=== PATIENT | male | born 1950 | race Caucasian/White ===

== ENCOUNTER → 2018-03-24 08:39 | Outpatient (CLI) | payer MEDICARE, SELFPAY ==
[2018-03-24 10:06] LABS: Absolute Lymphocyte Count 2.21 X10^3/ul (0.83-4.51); Absolute Neutrophil Count 3.1 X10^3/uL (2.0-7.7); Basophil# 0.01 X10^3/uL; Basophil% 0.2 % (0-1); Eosinophil# 0.16 X10^3/uL; Eosinophils% 2.7 % (0-5); Hemoglobin 15.5 g/dl (13.0-16.5); Lymphocyte # 2.21 X10^3/ul (4.0); Lymphocyte % 37.4 % (19-41); Mean Corpuscular Hgb 29.6 pg (27.0-32.0); Mean Corpuscular Volume 89.7 fL (80-94); Monocyte# 0.43 X10^3/uL; Monocyte% 7.3 % (0-10); Neutrophil # 3.09 X10^3/uL (2.7-7.7); Neutrophil % 52.2 % (47-70); Platelet Count 214 K/mm3 (150-450); RBC Distribution Width CV 12.8 % (11.6-14.6); RBC Distribution Width SD 41.8 fl (35.1-43.9); Red Blood Count 5.24 M/mm3 (4.6-6.2); White Blood Count 5.9 K/mm3 (4.4-11.0)
[2018-03-24 10:19] LABS: POSITIVE COUNT NO; POSITIVE DIFFERENTIAL NO; POSITIVE MORPHOLOGY NO
[2018-03-24 10:20] LABS: AST(SGOT) 10 U/L (15-37); Alanine Aminotransfer ALT/SGPT 20 U/L (16-61); Albumin, Serum 3.7 g/dL (3.2-5.0); Alkaline Phosphatase 38 U/L (45-117); Anion Gap 8 (5-15); BUN 16 mg/dL (7-18); BUN/Creat Ratio 19.3 RATIO (10-20); Calcium,Total 8.7 mg/dL (8.5-10.1); Chloride 105 mmol/L (98-107); Cholesterol 117 mg/dL (200); Creatinine, Serum 0.83 mg/dL (0.70-1.30); EST Glomerular Filtration Rate 98 mL/min (>60); Est Glom Filt Rate - Afr Amer 119 mL/min (>60); Globulin 3.7 g/dL (2.2-4.2); Glucose 141 mg/dL (74-106); High Density Lipoprotein 38 mg/dL; Potassium 4.4 mmol/L (3.5-5.1); Protein, Total 7.4 g/dL (6.4-8.2); Sodium Level 138 mmol/L (136-145); Triglycerides 123 mg/dL; Very Low Density Lipoprotein 25 mg/dL (5-40)
== END ==
PROVIDERS: Family Provider Family Medicine; PCP Family Medicine; Visit Provider Family Medicine
DX: M17.0 Bilateral primary osteoarthritis of knee (principal); E11.65 Type 2 diabetes mellitus with hyperglycemia
CPT/HCPCS: 36415; 80053; 80061; 85025

== ENCOUNTER → 2019-01-21 | Outpatient (CLI) | payer MEDICARE, SELFPAY ==
[2019-01-21 10:12] LABS: Microalbumin,Random Urine 19.6 mg/L (NO RANGE EST.); Microalbumin:Creatinine Ratio 31.1 mg/g CRE (<30 mg/g CRE)
[2019-01-21 10:29] LABS: ALB/GLOB Ratio 1.1 RATIO (0.9-2.4); AST(SGOT) 12 U/L (15-37); Alanine Aminotransfer ALT/SGPT 21 U/L (16-61); Albumin, Serum 3.7 g/dL (3.2-5.0); Alkaline Phosphatase 40 U/L (45-117); Anion Gap 5 (5-15); BUN 14 mg/dL (7-18); BUN/Creat Ratio 17.6 RATIO (10-20); Calcium,Total 8.9 mg/dL (8.5-10.1); Chloride 105 mmol/L (98-107); Cholesterol 124 mg/dL (200); EST Glomerular Filtration Rate 103 mL/min (>60); Est Glom Filt Rate - Afr Amer 125 mL/min (>60); Globulin 3.4 g/dL (2.2-4.2); Glucose 146 mg/dL (74-106); High Density Lipoprotein 36 mg/dL; Potassium 4.3 mmol/L (3.5-5.1); Protein, Total 7.1 g/dL (6.4-8.2); Sodium Level 136 mmol/L (136-145); Triglycerides 202 mg/dL; Very Low Density Lipoprotein 40 mg/dL (5-40)
== END | disposition home or self-care (01) ==
PROVIDERS: Family Provider Family Medicine; PCP Family Medicine; Referring Provider Family Medicine; Visit Provider Family Medicine
DX: E11.9 Type 2 diabetes mellitus without complications (principal)
CPT/HCPCS: 36415; 80053; 80061; 82043; 82570

== ENCOUNTER → 2020-11-30 16:55 | Outpatient (CLI) | payer MEDICARE, SELFPAY ==
[2015-10-02 13:18] VITALS: BMI 37.4
[2020-11-30 17:58] LABS: PSA,Total - Annual Screen 0.89 ng/mL (0.00-4.00)
== END ==
PROVIDERS: PCP Family Medicine; Referring Provider Family Medicine; Visit Provider Nurse Practitioner Family
DX: Z12.5 Encounter for screening for malignant neoplasm of prostate (principal)
CPT/HCPCS: 36415; 84153; G0103

== ENCOUNTER → 2021-12-10 | Outpatient (CLI) | payer MEDICARE, SELFPAY ==
[2021-12-10 10:39] LABS: ALB/GLOB Ratio 1.1 RATIO (0.9-2.4); AST(SGOT) 9 U/L (15-37); Alanine Aminotransfer ALT/SGPT 18 U/L (16-61); Albumin, Serum 3.9 g/dL (3.2-5.0); Alkaline Phosphatase 40 U/L (45-117); Anion Gap 7 (5-15); BUN 20 mg/dL (7-18); Calcium,Total 10.1 mg/dL (8.5-10.1); Chloride 102 mmol/L (98-107); Creatinine, Serum 0.95 mg/dL (0.70-1.30); EST Glomerular Filtration Rate 83 mL/min (>60); Est Glom Filt Rate - Afr Amer 101 mL/min (>60); Globulin 3.7 g/dL (2.2-4.2); Glucose 162 mg/dL (74-106); Potassium 4.6 mmol/L (3.5-5.1); Protein, Total 7.6 g/dL (6.4-8.2); Sodium Level 135 mmol/L (136-145)
[2021-12-10 10:41] LABS: Microalbumin:Creatinine Ratio 233.2 mg/g CRE (<30 mg/g CRE)
== END | disposition home or self-care (01) ==
LOC: MFPLAB 08:22
PROVIDERS: PCP Family Medicine; Visit Provider Family Medicine
DX: E11.8 Type 2 diabetes mellitus with unspecified complications (principal)
CPT/HCPCS: 36415; 80053; 82043; 82570

== ENCOUNTER → 2022-05-01 | Outpatient (CLI) | payer MEDICARE, SELFPAY ==
[2022-05-01 10:05] LABS: Absolute Lymphocyte Count 1.94 X10^3/uL (0.83-4.51); Absolute Neutrophil Count 3.9 X10^3/uL (2.0-7.7); Basophil# 0.05 X10^3/uL; Basophil% 0.8 % (0-1); Eosinophil# 0.14 X10^3/uL; Eosinophils% 2.1 % (0-5); Hematocrit 43.3 % (40-54); Hemoglobin 13.4 g/dL (13.0-16.5); Lymphocyte # 1.94 X10^3/ul (0.83-4.51); Lymphocyte % 29.3 % (19-41); Mean Corp Hgb Conc 30.9 g/dL (32-36); Mean Corpuscular Hgb 28.6 pg (27.0-32.0); Mean Corpuscular Volume 92.5 fL (80-94); Mean Platelet Vol. 9.1 fl (6.2-12.0); Monocyte# 0.59 X10^3/uL; Monocyte% 8.9 % (0-10); NRBC Flagged by Analyzer 0 % (0-5); Neutrophil # 3.89 X10^3/uL (2.7-7.7); Neutrophil % 58.6 % (47-70); Platelet Count 291 K/mm3 (150-450); RBC Distribution Width CV 13.4 % (11.6-14.6); RBC Distribution Width SD 45.9 fl (35.1-43.9); Red Blood Count 4.68 M/mm3 (4.6-6.2); White Blood Count 6.6 K/mm3 (4.4-11.0)
[2022-05-01 10:40] LABS: AST(SGOT) 6 U/L (15-37); Alanine Aminotransfer ALT/SGPT 15 U/L (16-61); Albumin, Serum 3.7 g/dL (3.2-5.0); Alkaline Phosphatase 42 U/L (45-117); Anion Gap 8 (5-15); BUN 18 mg/dL (7-18); BUN/Creat Ratio 21.6 RATIO (10-20); Calcium,Total 9.5 mg/dL (8.5-10.1); Chloride 104 mmol/L (98-107); Cholesterol 121 mg/dL (200); Creatinine, Serum 0.84 mg/dL (0.70-1.30); EST Glomerular Filtration Rate 97 mL/min (>60); Est Glom Filt Rate - Afr Amer 117 mL/min (>60); Globulin 3.6 g/dL (2.2-4.2); Glucose 161 mg/dL (74-106); High Density Lipoprotein 51 mg/dL; Potassium 4.3 mmol/L (3.5-5.1); Protein, Total 7.3 g/dL (6.4-8.2); Sodium Level 137 mmol/L (136-145); Triglycerides 130 mg/dL; Very Low Density Lipoprotein 26 mg/dL (5-40)
[2022-05-01 10:43] LABS: Microalbumin:Creatinine Ratio 223.6 mg/g CRE (<30 mg/g CRE)
== END | disposition home or self-care (01) ==
LOC: MFPLAB 08:07
PROVIDERS: PCP Family Medicine; Referring Provider Family Medicine; Visit Provider Family Medicine
DX: E66.01 Morbid (severe) obesity due to excess calories (principal); E11.8 Type 2 diabetes mellitus with unspecified complications
CPT/HCPCS: 36415; 80053; 80061; 82043; 82570; 85025

== ENCOUNTER → 2022-08-02 | Outpatient (CLI) | payer MEDICARE, SELFPAY ==
[2022-08-02 09:56] LABS: Absolute Lymphocyte Count 1.85 X10^3/uL (0.83-4.51); Absolute Neutrophil Count 4.2 X10^3/uL (2.0-7.7); Basophil# 0.03 X10^3/uL; Basophil% 0.4 % (0-1); Eosinophil# 0.21 X10^3/uL; Eosinophils% 3.1 % (0-5); Hematocrit 40.8 % (40-54); Hemoglobin 12.7 g/dL (13.0-16.5); Lymphocyte # 1.85 X10^3/ul (0.83-4.51); Lymphocyte % 27.4 % (19-41); Mean Corp Hgb Conc 31.1 g/dL (32-36); Mean Corpuscular Hgb 27.9 pg (27.0-32.0); Mean Corpuscular Volume 89.7 fL (80-94); Mean Platelet Vol. 8.9 fl (6.2-12.0); Monocyte# 0.46 X10^3/uL; Monocyte% 6.8 % (0-10); NRBC Flagged by Analyzer 0 % (0-5); Neutrophil # 4.18 X10^3/uL (2.7-7.7); Platelet Count 308 K/mm3 (150-450); RBC Distribution Width CV 13.4 % (11.6-14.6); RBC Distribution Width SD 44.3 fl (35.1-43.9); Red Blood Count 4.55 M/mm3 (4.6-6.2); White Blood Count 6.8 K/mm3 (4.4-11.0)
[2022-08-02 10:17] LABS: AST(SGOT) 9 U/L (15-37); Alanine Aminotransfer ALT/SGPT 13 U/L (16-61); Albumin, Serum 3.5 g/dL (3.2-5.0); Alkaline Phosphatase 45 U/L (45-117); Anion Gap 9 (5-15); BUN 21 mg/dL (7-18); BUN/Creat Ratio 22.8 RATIO (10-20); Calcium,Total 9.7 mg/dL (8.5-10.1); Chloride 104 mmol/L (98-107); Cholesterol 126 mg/dL (200); Creatinine, Serum 0.92 mg/dL (0.70-1.30); EST Glomerular Filtration Rate 86 mL/min (>60); Est Glom Filt Rate - Afr Amer 104 mL/min (>60); Globulin 3.4 g/dL (2.2-4.2); Glucose 159 mg/dL (74-106); High Density Lipoprotein 46 mg/dL; Potassium 4.9 mmol/L (3.5-5.1); Protein, Total 6.9 g/dL (6.4-8.2); Sodium Level 140 mmol/L (136-145); Triglycerides 152 mg/dL; Very Low Density Lipoprotein 30 mg/dL (5-40)
[2022-08-02 10:20] LABS: Microalbumin:Creatinine Ratio 252.8 mg/g CRE (<30 mg/g CRE)
== END | disposition home or self-care (01) ==
LOC: MFPLAB 08:37
PROVIDERS: PCP Family Medicine; Referring Provider Family Medicine; Visit Provider Family Medicine
DX: E11.9 Type 2 diabetes mellitus without complications (principal); I10 Essential (primary) hypertension
CPT/HCPCS: 36415; 80053; 80061; 82043; 82570; 85025

== ENCOUNTER → 2022-11-01 | Outpatient (CLI) | payer MEDICARE, SELFPAY ==
[2022-11-01 10:05] LABS: Microalbumin:Creatinine Ratio 138.7 mg/g CRE (<30 mg/g CRE)
[2022-11-01 10:18] LABS: AST(SGOT) 7 U/L (15-37); Alanine Aminotransfer ALT/SGPT 15 U/L (16-61); Albumin, Serum 3.7 g/dL (3.2-5.0); Alkaline Phosphatase 50 U/L (45-117); Anion Gap 4 (5-15); BUN 21 mg/dL (7-18); BUN/Creat Ratio 19.8 RATIO (10-20); Calcium,Total 9.8 mg/dL (8.5-10.1); Chloride 103 mmol/L (98-107); Creatinine, Serum 1.06 mg/dL (0.70-1.30); EST Glomerular Filtration Rate 73 mL/min (>60); Est Glom Filt Rate - Afr Amer 89 mL/min (>60); Globulin 3.8 g/dL (2.2-4.2); Glucose 190 mg/dL (74-106); Potassium 4.7 mmol/L (3.5-5.1); Protein, Total 7.5 g/dL (6.4-8.2); Sodium Level 135 mmol/L (136-145)
== END | disposition home or self-care (01) ==
LOC: MTLAB 08:36
PROVIDERS: PCP Family Medicine; Referring Provider Family Medicine; Visit Provider Family Medicine
DX: E11.8 Type 2 diabetes mellitus with unspecified complications (principal)
CPT/HCPCS: 36415; 80053; 82043; 82570

== ENCOUNTER → 2022-11-25 | Outpatient (CLI) | payer MEDICARE, SELFPAY ==
--- NOTE | 2022-11-25 09:40 | RAD_ITS ---
STUDY: X-RAY - LUMBAR SPINE REASON FOR EXAM: Male, 72 years old. Lumbar sprain. Pain. TECHNIQUE: 5 view(s) of the lumbar spine were obtained. COMPARISON: None FINDINGS: Osteopenia. Normal lumbar lordosis. Rotatory levoscoliosis. There is a normal alignment of the vertebrae. Diffuse lower thoracic and lumbosacral facet sclerosis. Intervertebral disc space narrowing with osteophytes in the lower thoracic spine and from L1 to L5 S1. Osteophyte formation most marked at L3-4, L4-5 and L5-S1. Vascular calcification. RAD/L/S Spine Min 4 Views IMPRESSION: Levoscoliosis with lower thoracic and lumbosacral spondylosis as described. Electronically Signed: Lc Ruano, at 13:51 EDT ,
== END | disposition home or self-care (01) ==
PROVIDERS: PCP Family Medicine; Referring Provider Chiropractor; Visit Provider Chiropractor
DX: S33.5XXA Sprain of ligaments of lumbar spine, initial encounter (principal)
CPT/HCPCS: 72110

== ENCOUNTER → 2023-08-22 | Outpatient (CLI) | payer MEDICARE, SELFPAY ==
[2023-08-22 12:18] LABS: Absolute Neutrophil Count 4.5 X10^3/uL (2.0-7.7); Basophil# 0.07 X10^3/uL; Basophil% 0.9 % (0-1); Eosinophil# 0.27 X10^3/uL; Eosinophils% 3.6 % (0-5); Hematocrit 39.5 % (40-54); Hemoglobin 11.8 g/dL (13.0-16.5); Lymphocyte % 27.9 % (19-41); Mean Corp Hgb Conc 29.9 g/dL (32-36); Mean Corpuscular Hgb 25.9 pg (27.0-32.0); Mean Corpuscular Volume 86.8 fL (80-94); Monocyte# 0.57 X10^3/uL; Monocyte% 7.6 % (0-10); NRBC Flagged by Analyzer 0 % (0-5); Neutrophil % 59.7 % (47-70); Platelet Count 296 K/mm3 (150-450); RBC Distribution Width CV 17.2 % (11.6-14.6); RBC Distribution Width SD 54.8 fl (35.1-43.9); Red Blood Count 4.55 M/mm3 (4.6-6.2); White Blood Count 7.5 K/mm3 (4.4-11.0)
[2023-08-22 12:54] LABS: AST(SGOT) 6 U/L (15-37); Alanine Aminotransfer ALT/SGPT 14 U/L (16-61); Albumin, Serum 3.7 g/dL (3.2-5.0); Alkaline Phosphatase 50 U/L (45-117); Anion Gap 4 (5-15); BUN 26 mg/dL (7-18); BUN/Creat Ratio 20.5 RATIO (10-20); Calcium,Total 9.7 mg/dL (8.5-10.1); Chloride 105 mmol/L (98-107); Cholesterol 135 mg/dL (200); Creatinine, Serum 1.27 mg/dL (0.70-1.30); EST Glomerular Filtration Rate 59 mL/min (>60); Est Glom Filt Rate - Afr Amer 72 mL/min (>60); Globulin 3.7 g/dL (2.2-4.2); Glucose 122 mg/dL (74-106); High Density Lipoprotein 58 mg/dL; PSA,Total - Annual Screen 1.41 ng/mL (0.00-4.00); Potassium 4.7 mmol/L (3.5-5.1); Protein, Total 7.4 g/dL (6.4-8.2); Sodium Level 137 mmol/L (136-145); Triglycerides 156 mg/dL; Very Low Density Lipoprotein 31 mg/dL (5-40)
[2023-08-22 13:09] LABS: Microalbumin,Random Urine 35.5 mg/L (NO RANGE EST.); Microalbumin:Creatinine Ratio 55.2 mg/g CRE (<30 mg/g CRE)
== END | disposition home or self-care (01) ==
LOC: MTLAB 10:23
PROVIDERS: PCP Family Medicine; Referring Provider Family Medicine; Visit Provider Family Medicine
DX: M17.0 Bilateral primary osteoarthritis of knee (principal); E11.9 Type 2 diabetes mellitus without complications; I10 Essential (primary) hypertension; Z12.5 Encounter for screening for malignant neoplasm of prostate
CPT/HCPCS: 36415; 80053; 80061; 82043; 82570; 84153; 85025; G0103

== ENCOUNTER → 2024-03-30 | Outpatient (CLI) | payer MEDICARE, SELFPAY ==
[2024-03-30 09:57] LABS: Absolute Lymphocyte Count 1.81 X10^3/uL (0.83-4.51); Absolute Neutrophil Count 4.5 X10^3/uL (2.0-7.7); Basophil# 0.07 X10^3/uL; Eosinophil# 0.45 X10^3/uL; Eosinophils% 6.2 % (0-5); Hematocrit 39.3 % (40-54); Hemoglobin 11.8 g/dL (13.0-16.5); Lymphocyte # 1.81 X10^3/ul (0.83-4.51); Lymphocyte % 24.8 % (19-41); Mean Corpuscular Hgb 26.3 pg (27.0-32.0); Mean Corpuscular Volume 87.7 fL (80-94); Mean Platelet Vol. 8.7 fl (6.2-12.0); Monocyte# 0.48 X10^3/uL; Monocyte% 6.6 % (0-10); NRBC Flagged by Analyzer 0 % (0-5); Neutrophil # 4.47 X10^3/uL (2.7-7.7); Platelet Count 376 K/mm3 (150-450); RBC Distribution Width CV 14.9 % (11.6-14.6); RBC Distribution Width SD 48.3 fl (35.1-43.9); Red Blood Count 4.48 M/mm3 (4.6-6.2); White Blood Count 7.3 K/mm3 (4.4-11.0)
[2024-03-30 10:52] LABS: AST(SGOT) 5 U/L (15-37); Alanine Aminotransfer ALT/SGPT 14 U/L (16-61); Albumin, Serum 3.6 g/dL (3.2-5.0); Alkaline Phosphatase 66 U/L (45-117); Anion Gap 7 (5-15); BUN 17 mg/dL (7-18); Calcium,Total 9.8 mg/dL (8.5-10.1); Chloride 103 mmol/L (98-107); Creatinine, Serum 1.13 mg/dL (0.70-1.30); EST Glomerular Filtration Rate 68 mL/min (>60); Est Glom Filt Rate - Afr Amer 82 mL/min (>60); Globulin 3.6 g/dL (2.2-4.2); Glucose 227 mg/dL (74-106); Potassium 4.2 mmol/L (3.5-5.1); Protein, Total 7.2 g/dL (6.4-8.2); Sodium Level 134 mmol/L (136-145)
== END | disposition home or self-care (01) ==
LOC: MFPLAB 08:37
PROVIDERS: PCP Family Medicine; Visit Provider Family Medicine
DX: M10.9 Gout, unspecified (principal)
CPT/HCPCS: 36415; 80053; 84550; 85025

== ENCOUNTER 2024-04-19 13:00 | Outpatient (RCR) | payer MEDICARE, SELFPAY ==
--- NOTE | 2024-03-16 08:15 | HP.PTEVAL_ITS ---
Patient's Visit Information Visit Information Visit Information: TOMER RIVAS is a 74 year old M referred to Physical Therapy by Dr. Adalid Barth MD with a diagnosis of L TKR 02.22.24. Date of Evaluation: 03/16/24 Physical Therapist: Jonel Kinsey, PT, RIYA, SCS, CSCS Visit Plan Frequency: 2x /Week Duration: 5 weeks Plan: patient would like to come 2xweek for 5 weeks Subjective Subjective: Mr. Rivas is a pleasant 74 yo who was referred to our care following a L TKR on February 22, [address] Barth. He states that this has been a hell of a year with him having back sx earlier this year, his left knee replacement and he is going to have his right knee replaced later this year. Mr. Rivas states that his knees have been bothering him for about 3 years prior to seeking help. He currently lives with his in a one story home with 2 steps to enter. He is currently driving. He said that due to his numerous orthopedic issues he has been very sedentary lately. Pain Left Knee: Pain Intensity (Out of 10): 3 Pain Intensity Range: 1 and 7 Objective Objective: Currently ambulating with a cane WBAT, slower than community distance at this time. ROM is -5 extension 100 flexion with soft end feel. Incision site is healing well with no seepage or drainage. Patient denies any fever or chills. Girth measure indicate about 2 inches differences between L 17.5 R 15.7 5. MMT indicate a significant difference btw the L/R . R ext. 33/12 R Flexion 19 vs 7. Balance/Special Test Scores WOMAC Total Score: 48 WOMAC Percentatge: 47.8300 Goals Goal 1:: Patient will return demo HEP and understand the healing process Goal Time Frame: 1 Week Goal 2:: Improve ROM 10% Goal Time Frame: 2 Weeks Goal 3:: Improve MMT 10% Goal Time Frame: 2-4 Weeks Goal 4:: Wean from assistive device as appropriate Goal Time Frame: 6-8 Weeks Rehabilitation Potential Physical Therapy Diagnosis: Same with decrease ROm MMT and alterned gait. Rehabilitation Potential: Good Anticipated Interventions Patient/Client Instruction: Educate patient on: Condition and Plan of Care For the Purpose of:: To decrease pain and To increase flexibility/ROM Therapeutic Exercise to Include: Strength training, Balance training, Coordination, Flexibilty training and Gait and locomotor training For the Purpose of:: To decrease pain, To decrease swelling/inflammation, To increase ROM, To improve endurance, To improve balance and To improve safety with gait Vasopneumatic device: Yes Text: Thank you for the opportunity to evaluate your patient. For Medicare and Medicare HMO plans, please review the plan of care and approve it. It will need to be FAXED BACK to us at [phone] for Medicare purposes. For Medicare only, by signing this I certify the plan of care. Please let me know if there are questions or concerns regarding this plan of care. Physician Signature: Date:
--- NOTE | 2024-04-19 13:40 | HP.PTDCSUM ---
Discharge Summary D/C summary: It has been my pleasure to treat BRENT RIVAS referred by Dr. Adalid Barth MD, with the diagnosis of L TKR 8 for a total of 11 visit(s). Discharge Date: 04/19/24 Please see the following information for a summary of their discharge status. Subjective Subjective: I think I'm doing pretty well for 74. [address] Barth on May 13 hoping he can schedule my other knee in June. My does silver sneakers in the morning so I might try to do it also. Pain Left Knee: Pain Intensity (Out of 10): 0 Overall Improvement % Improvement: 90 Objective Objective/Function: 0-125+ with a soft end feel L 55 knee ext 40 Knee Flexion sx leg better than opposite. R 40 knee ext 29 Knee flexion Goals Goal 1:: Patient will return demo HEP and understand the healing process Goal 2:: Improve ROM 10% Goal 3:: Improve MMT 10% Goal 4:: Wean from assistive device as appropriate Plan Plan: Discharge to [facility] D/C Information Discharge Comments: Progressing nicely, fu with Dr Barth. Brent is happy with his progress and eager to have his other knee done in June. d/c sentence: If there are questions or concerns regarding this patient's physical therapy, please feel free to call me at [phone]. Thank you for the referral of this patient. Sincerely, Jonel Kinsey, PT, RIYA, SCS, CSCS Balance/Gait/Functional tests Balance/Special Test Scores WOMAC Total Score: 12 WOMAC Percentage: 87.5000 Improvement % Improvement: 90
--- NOTE | 2024-04-19 13:40 | HP.PTDCSUM ---
Discharge Summary D/C summary: It has been my pleasure to treat BRENT RIVAS referred by Dr. Adalid Barth MD, with the diagnosis of L TKR 8 for a total of 11 visit(s). Discharge Date: 04/19/24 Please see the following information for a summary of their discharge status. Subjective Subjective: I think I'm doing pretty well for 74. [address] Barth on May 13 hoping he can schedule my other knee in June. My does silver sneakers in the morning so I might try to do it also. Pain Left Knee: Pain Intensity (Out of 10): 0 Overall Improvement % Improvement: 90 Objective Objective/Function: 0-125+ with a soft end feel L 55 knee ext 40 Knee Flexion sx leg better than opposite. R 40 knee ext 29 Knee flexion Goals Goal 1:: Patient will return demo HEP and understand the healing process Goal 2:: Improve ROM 10% Goal 3:: Improve MMT 10% Goal 4:: Wean from assistive device as appropriate Plan Plan: Discharge to [facility] D/C Information Discharge Comments: Progressing nicely, fu with Dr Barth. Brent is happy with his progress and eager to have his other knee done in June. d/c sentence: If there are questions or concerns regarding this patient's physical therapy, please feel free to call me at [phone]. Thank you for the referral of this patient. Sincerely, Jonel Kinsey, PT, RIYA, SCS, CSCS Balance/Gait/Functional tests Balance/Special Test Scores WOMAC Total Score: 12 WOMAC Percentage: 87.5000 Improvement % Improvement: 90
== END 2024-04-19 19:00 | disposition home or self-care (01) ==
LOC: PT 13:00
PROVIDERS: PCP Family Medicine; Referring Provider Orthopaedic Surgery; Visit Provider Orthopaedic Surgery
DX: M17.12 Unilateral primary osteoarthritis, left knee (principal)
CPT/HCPCS: 97014; 97110; 97162; 97530; G0283

== ENCOUNTER 2024-08-23 11:00 | Outpatient (RCR) | payer MEDICARE, SELFPAY ==
--- NOTE | 2024-07-12 12:21 | HP.PTEVAL ---
Patient's Visit Information Visit Information Visit Information: TOMER RIVAS is a 74 year old M referred to Physical Therapy by GABY Cano with a diagnosis of UNILATERAL PRIMARY OSTEOARTHRITIS. Date of Evaluation: 07/12/24 Physical Therapist: Mina Mccarty, PT, Cert MDT, OCS Visit Plan Frequency: 3x /Week Duration: 5WEEKS Plan: S/P TKA Jun 16 FOCUS ON ROM ESPECIALLY EXTENSION PT INTERVENTIONS ROM KNEE ,FLEXABILITY RIGHT QUADS/HAMS ,STRENGTHENING QUADS/HAMS/HIP ,GAIT /BALANCE TRAINING, STICK ROLL HAMSTRINGS /QUADS AND FUNCTIONAL STRENGTHENING CP Subjective Subjective: This 74 y/o male presents to physical therapy with right TKA on Jun [address] Roberts at [facility]. Patient d/c next day. Patient d/c with FWW WBAT RLE. Patient had [facility] PT 3 weeks 2x /week. Medication oxycodone ,telonal .Patient had pain block bit thus surgery is worse with pain. Patient had pain last February. Patient has difficulty sleeping. Denies paresthesia/tingling . Patient 2 story home with 2 steps ,Walk in shower. Patient is able to bath /dress and spouse cooks. Patient uses ice. Patient condition affects QOL and function with gait /ADLS SOCIAL: VOCATION: retired Pain Right Knee: Pain Intensity (Out of 10): 4 Pain Intensity Range: 10 Objective Objective: POSTURE: mild forward posture right knee /hip flexed GAIT: ambulates with fww WBAT RLE slow reinier mild decrease stance time RLE GIRTH PATELLA: 43.0 GIRTH 6 SUPRAPATELLAR : 49.8 AROM: 30-100 supine knee flexion MMT: ( peak force) quads 19.1 ,hamstrings 13.3 ,hip flexion 4-/5 ankle 4/5 STAIR: one step at time with rails BALANCE: fair+ with fww Balance/Special Test Scores Lower Extremity Functional Score: 16 Goals Goal 1:: Patient to be I with HEP for TKA Goal Time Frame: 4-6 Weeks Goal 2:: Patient to ambulate with reciprocal pattern no device Goal Time Frame: 4-6 Weeks Goal 3:: Patient to improve AROM supine knee flexion 10 -115 degrees supine flexion Goal Time Frame: 4-6 Weeks Goal 4:: Patient to improve peak force quads/hams by 10-15# to improve function and gait Goal Time Frame: 4-6 Weeks Goal 5:: Patient to improve TUG score by 10 secs to improve gait Goal Time Frame: 4-6 Weeks Goal 6:: Patient to improve LFES score by 10 # to improve function adn QOL Goal Time Frame: 4-6 Weeks Rehabilitation Potential Physical Therapy Diagnosis: This patient underwent s/p right TKA on Jun 16 with decrease ROM especially with extension ,weakness quads/hams ,decrease gait impairs ADLS and housework tasks thus benefit from skilled PT Rehabilitation Potential: Good Anticipated Interventions Patient/Client Instruction: Educate patient on: Condition and Plan of Care For the Purpose of:: To decrease pain, To increase ROM, To improve muscle performance and motor function, To improve ability to perform ADL's, To improve ability of physical actions for home/community/work/leisure, To improve health of tissue, To decrease soft tissue restriction, To increase flexibility/ROM, To improve balance, To reduce risk of recurrence and To improve tolerance to ADL's Therapeutic Exercise to Include: Strength training, Endurance training, Balance training, Body mechanics, Postural training, Flexibilty training, Passive ROM and Active ROM For the Purpose of:: To decrease pain, To increase ROM, To improve muscle performance and motor function, To improve ability to perform ADL's, To improve ability of physical actions for home/community/work/leisure, To improve gait and locomotor functions, To improve health of tissue, To decrease soft tissue restriction, To increase flexibility/ROM, To improve endurance and To improve balance Text: Thank you for the opportunity to evaluate your patient. For Medicare and Medicare HMO plans, please review the plan of care and approve it. It will need to be FAXED BACK to us at [phone] for Medicare purposes. For Medicare only, by signing this I certify the plan of care. Please let me know if there are questions or concerns regarding this plan of care. Physician Signature: Date:
--- NOTE | 2024-07-12 12:43 | HP.PTEVAL ---
Patient's Visit Information Visit Information Visit Information: TOMER RIVAS is a 74 year old M referred to Physical Therapy by GABY Cano with a diagnosis of UNILATERAL PRIMARY OSTEOARTHRITIS. Date of Evaluation: 07/12/24 Physical Therapist: Mina Mccarty, PT, Cert MDT, OCS Visit Plan Frequency: 3x /Week Duration: 5WEEKS Plan: S/P TKA Jun 16 FOCUS ON ROM ESPECIALLY EXTENSION PT INTERVENTIONS ROM KNEE ,FLEXABILITY RIGHT QUADS/HAMS ,STRENGTHENING QUADS/HAMS/HIP ,GAIT /BALANCE TRAINING, STICK ROLL HAMSTRINGS /QUADS AND FUNCTIONAL STRENGTHENING CP Subjective Subjective: This 74 y/o male presents to physical therapy with right TKA on Jun [address] Roberts at [facility]. Patient d/c next day. Patient d/c with FWW WBAT RLE. Patient had [facility] PT 3 weeks 2x /week. Medication oxycodone ,telonal .Patient had pain block bit thus surgery is worse with pain. Patient had pain last February. Patient has difficulty sleeping. Denies paresthesia/tingling . Patient 2 story home with 2 steps ,Walk in shower. Patient is able to bath /dress and spouse cooks. Patient uses ice. Patient condition affects QOL and function with gait /ADLS SOCIAL: VOCATION: retired Pain Right Knee: Pain Intensity (Out of 10): 4 Pain Intensity Range: 10 Objective Objective: POSTURE: mild forward posture right knee /hip flexed GAIT: ambulates with fww WBAT RLE slow reinier mild decrease stance time RLE GIRTH PATELLA: 43.0 GIRTH 6 SUPRAPATELLAR : 49.8 AROM: 30-100 supine knee flexion MMT: ( peak force) quads 19.1 ,hamstrings 13.3 ,hip flexion 4-/5 ankle 4/5 STAIR: one step at time with rails BALANCE: fair+ with fww Balance/Special Test Scores Lower Extremity Functional Score: 16 WOMAC Total Score: 58 WOMAC Percentatge: 39.5900 Goals Goal 1:: Patient to be I with HEP for TKA Goal Time Frame: 4-6 Weeks Goal 2:: Patient to ambulate with reciprocal pattern no device Goal Time Frame: 4-6 Weeks Goal 3:: Patient to improve AROM supine knee flexion 10 -115 degrees supine flexion Goal Time Frame: 4-6 Weeks Goal 4:: Patient to improve peak force quads/hams by 10-15# to improve function and gait Goal Time Frame: 4-6 Weeks Goal 5:: Patient to improve TUG score by 10 secs to improve gait Goal Time Frame: 4-6 Weeks Goal 6:: Patient to improve LFES score by 10 # to improve function adn QOL Goal Time Frame: 4-6 Weeks Rehabilitation Potential Physical Therapy Diagnosis: This patient underwent s/p right TKA on Jun 16 with decrease ROM especially with extension ,weakness quads/hams ,decrease gait impairs ADLS and housework tasks thus benefit from skilled PT Rehabilitation Potential: Good Anticipated Interventions Patient/Client Instruction: Educate patient on: Condition and Plan of Care For the Purpose of:: To decrease pain, To increase ROM, To improve muscle performance and motor function, To improve ability to perform ADL's, To improve ability of physical actions for home/community/work/leisure, To improve health of tissue, To decrease soft tissue restriction, To increase flexibility/ROM, To improve balance, To reduce risk of recurrence and To improve tolerance to ADL's Therapeutic Exercise to Include: Strength training, Endurance training, Balance training, Body mechanics, Postural training, Flexibilty training, Passive ROM and Active ROM For the Purpose of:: To decrease pain, To increase ROM, To improve muscle performance and motor function, To improve ability to perform ADL's, To improve ability of physical actions for home/community/work/leisure, To improve gait and locomotor functions, To improve health of tissue, To decrease soft tissue restriction, To increase flexibility/ROM, To improve endurance and To improve balance Text: Thank you for the opportunity to evaluate your patient. For Medicare and Medicare HMO plans, please review the plan of care and approve it. It will need to be FAXED BACK to us at [phone] for Medicare purposes. For Medicare only, by signing this I certify the plan of care. Please let me know if there are questions or concerns regarding this plan of care. Physician Signature: Date:
--- NOTE | 2024-08-23 11:57 | HP.PTDCSUM ---
Discharge Summary D/C summary: It has been my pleasure to treat TOMER RIVAS referred by GABY Cano, with the diagnosis of UNILATERAL PRIMARY OSTEOARTHRITIS for a total of 12 visit(s). Discharge Date: 08/23/24 Please see the following information for a summary of their discharge status. Subjective Subjective: Doing well . Seen last and is happy progress Pain Right Knee: Pain Intensity (Out of 10): 0 Overall Improvement % Improvement: 80 Objective Objective/Function: POSTURE: mild forward posture right knee /hip flexed GAIT: ambulates reciprocal pattern GIRTH PATELLA: 41.1 GIRTH 6 SUPRAPATELLAR : 48.7 AROM: 10-120 supine knee flexion MMT: ( peak force) quads 40.1 ,hamstrings 34.3 ,hip flexion 4-/5 ankle 4/5 STAIR: alternating with rail BALANCE: good- Goals Goal 1:: Patient to be I with HEP for TKA Goal Progress: Goal Met Goal 2:: Patient to ambulate with reciprocal pattern no device Goal Progress: Goal Met Goal 3:: Patient to improve AROM supine knee flexion 10 -115 degrees supine flexion Goal Progress: Goal Met Goal 4:: Patient to improve peak force quads/hams by 10-15# to improve function and gait Goal Progress: Goal Met Goal 5:: Patient to improve TUG score by 10 secs to improve gait Goal Progress: Goal Met Goal 6:: Patient to improve LFES score by 10 # to improve function adn QOL Plan Plan: D/C HEP D/C Information Discharge Comments: HEP d/c sentence: If there are questions or concerns regarding this patient's physical therapy, please feel free to call me at [phone]. Thank you for the referral of this patient. Sincerely, Mina Mccarty, PT, Cert MDT, OCS Balance/Gait/Functional tests Balance/Special Test Scores Lower Extremity Functional Score: 57 Tug Test: 20-30sec.=variable mobility WOMAC Total Score: 6 WOMAC Percentage: 93.7500 Improvement % Improvement: 80
== END 2024-08-23 19:00 | disposition home or self-care (01) ==
LOC: PT 11:00
PROVIDERS: PCP Family Medicine; Referring Provider Physician Assistant; Visit Provider Physician Assistant
DX: M17.11 Unilateral primary osteoarthritis, right knee (principal)
CPT/HCPCS: 97016; 97110; 97162; 97530

== ENCOUNTER 2024-11-05 12:00 | Outpatient (RCR) | payer MEDICARE, SELFPAY ==
--- NOTE | 2024-10-28 11:02 | HP.PTEVAL_ITS ---
Patient's Visit Information Visit Information Visit Information: TOMER RIVAS is a 74 year old M referred to Physical Therapy by Dr. Bryon Ornelas MD with a diagnosis of LBP. Date of Evaluation: 10/28/24 Physical Therapist: Dieter Arreaga, PT, ATC Visit Plan Frequency: 1x/Week Duration: 1-2 Plan: Pt was issued PRIYA and R side glides this date. Pt will continue with that for a week and follow up. If pain worsens, switch to SKTC/DKTC routine. Then issue and instruct pt on core strengthening ex's to continue with I. Subjective Subjective: Pt notes he has had LBP for about 3 weeks. Pt notes his pain had an insidious onset in nature. Pt reports he just woke up one day and had significant pain. Pt notes his pain has lessened since the onset, but just wont go away. Pt notes he had surgery on his LB one year ago, but cant recall what they did at that time. Pt denies LE radiculopathy at this time. Pt reports he has not had any recent diagnostic tests. Pt reports no sleep difficulty at this time secondary to LBP. Pt reports prolonged standing for greater than 5-10 minutes will increase his pain. prolonged sitting tends to decrease his pain. Pt notes he has a hard time with standing up after sitting secondary to LBP. Pt notes he usually golfs 2-3 times per week, but cant now secondary to LBP. 0/10 pain at rest, 6/10 pain at worst. Pain LBP: Pain Intensity (Out of 10): 0 Pain Intensity Range: 6 Objective Objective: Neuro: B LE sensation is WNL to light touch MMT: B LE's are grossly 5/5 throughout when compared bilaterally ROM: Pt is moderately limited with extension of the L/S. All other ranges are WNL Repeated movements: PRIYA 10x1 NE, PRIYA combined with R side glides decreased pain. SKTC/DKTC 10 sec x 3 ea NE Balance/Special Test Scores Oswestry Low Back Score: 14 Goals Goal 1:: Pt will be I with HEP Goal Time Frame: 2 Weeks Rehabilitation Potential Physical Therapy Diagnosis: Pt has LBP, L sided shift, and intolerance to standing secondary to L/S disc derangement Rehabilitation Potential: Good Anticipated Interventions Patient/Client Instruction: Educate patient on: Condition and Plan of Care For the Purpose of:: To improve self management Therapeutic Exercise to Include: Strength training, Body mechanics, Postural training, Dynamic Lumbar Stabilization and Carlton Exercises For the Purpose of:: To decrease pain, To increase ROM and To improve muscle performance and motor function Text: Thank you for the opportunity to evaluate your patient. For Medicare and Medicare HMO plans, please review the plan of care and approve it. It will need to be FAXED BACK to us at [phone] for Medicare purposes. For Medicare only, by signing this I certify the plan of care. Please let me know if there are questions or concerns regarding this plan of care. Physician Sig nature: Date:
--- NOTE | 2025-01-10 14:40 | HP.PT.NRP ---
Patient Information Patient Information: TOMER RIVAS was seen in my office for initial evaluation on 10/28/24. The following Plan of Care was established for this patient: POC Established Initial Frequency: 1x/Week Initial Duration: 1-2 Anticipated Interventions Patient/Client Instruction: Educate patient on: Condition and Plan of Care For the Purpose of:: To improve self management Therapeutic Exercise to Include: Strength training, Body mechanics, Postural training, Dynamic Lumbar Stabilization and Carlton Exercises For the Purpose of:: To decrease pain, To increase ROM and To improve muscle performance and motor function Last Seen Last Seen: This patient was last seen in our office . Pertinent comments regarding their Physical therapy will appear below: Pt has not returned for greater than 30 days and is discontinued at this time. At this point I will be discontinuing this patient from physical therapy. I would be happy to see this patient again in the future if found appropriate by the physician. Thank you! Dieter Arreaga, PT, ATC Balance/Gait/Functional tests Balance/Special Test Scores Oswestry Low Back Score: 14
== END 2024-11-05 19:00 | disposition home or self-care (01) ==
LOC: PT 12:00
PROVIDERS: PCP Family Medicine; Referring Provider Family Medicine; Visit Provider Family Medicine
DX: M54.50 Low back pain, unspecified (principal)
CPT/HCPCS: 97110; 97161

== ENCOUNTER → 2025-01-27 | Outpatient (CLI) | payer MEDICARE, SELFPAY ==
[2025-01-27 12:37] LABS: Hematocrit 39.1 % (40-54); Hemoglobin 11.6 g/dL (13.0-16.5); Immature Granulocytes Count 0.020 X10^3/uL (0.0-0.0); Mean Corp Hgb Conc 29.7 g/dL (32-36); Mean Corpuscular Volume 85.2 fL (80-94); Mean Platelet Vol. 9.1 fl (6.2-12.0); NRBC Flagged by Analyzer 0 % (0-5); Platelet Count 313 K/mm3 (150-450); RBC Distribution Width CV 17.1 % (11.6-14.6); RBC Distribution Width SD 53.1 fl (35.1-43.9); Red Blood Count 4.59 M/mm3 (4.6-6.2); White Blood Count 5.4 K/mm3 (4.4-11.0)
[2025-01-27 13:12] LABS: AST(SGOT) 11 U/L (<=37); Alanine Aminotransfer ALT/SGPT < 5 U/L (<=46); Albumin, Serum 4.2 g/dL (3.4-4.8); Alkaline Phosphatase 53 U/L (40-129); Anion Gap 11 (5-15); BUN 16 mg/dL (4-19); BUN/Creat Ratio 15.0 RATIO (10-20); Calcium,Total 9.8 mg/dL (7.6-11.0); Carbon Dioxide 25.3 mmol/L (21.0-32.0); Chloride 103 mmol/L (98-108); Globulin 2.8 g/dL (2.2-4.2); Glucose 119 mg/dL (70-99); Potassium 5.4 mmol/L (3.3-5.1)
[2025-01-27 13:26] LABS: Creatinine, Urine (random) 104.00 mg/dL (39.00-259.00); Microalbumin,Random Urine 19.9 mg/L (<20 mg/L)
== END | disposition home or self-care (01) ==
LOC: MFPLAB 09:56
PROVIDERS: PCP Family Medicine; Referring Provider Family Medicine; Visit Provider Family Medicine
DX: E11.8 Type 2 diabetes mellitus with unspecified complications (principal)
CPT/HCPCS: 36415; 80053; 82043; 82570; 85025